=== PATIENT | male | born 1945 | race Caucasian/White ===

== ENCOUNTER 2018-02-01 02:44 | Inpatient (IN) | payer OTHER, MEDICARE ==
[2018-02-01] VITALS (7 sets, daily range): BP systolic 121–187; BP diastolic 73–103; PULSE 49–92; RESP 18–20; TEMP 97.4–98.8; O2SAT 92–98
[~2018-02-01] VITALS: Ht 175.3 cm; Wt 58.1 kg
[2018-02-01] MEDS ORDERED: SODIUM CHLORID 0.9% 500 ML INJ 500 ML IV ONE (03:30)
[2018-02-01] MEDS ORDERED: PROCHLORPERAZINE INJ 10 MG/2 ML VIAL IV PUSH ONE (03:30)
[2018-02-01] MEDS ORDERED: MORPHINE SULFATE 8 MG/ML INJ IV PUSH ONE (03:30)
--- NOTE | 2018-02-01 03:32 | PD ---
HPI Chief Complaint: Abdominal Pain Time Seen by Provider: 02:48 Travel History International Travel<30 days: No Contact w/Intl Traveler<30days: No Traveled to known affect area: No History of Present Illness HPI The patient is a 73 year old male who presents to the [facility] emergency department with a history of abdominal pain that he describes as stomach upset that began at 6:30 PM when he was eating dinner. He reports that he went to lie down to rest and with walking and movement he began to have left groin pain over his hernia. The patient reports that he has a large left hernia that is been present for the last 4-5 years. He reports that over the last 2 months he has been wearing a hernia belt with some improvement in his discomfort. He reports that it is usually reducible. He reports that since it began to hurt this evening he has been trying to reduce it for the last 3 hours without success. He reports that he now has generalized abdominal pain. He reports that he has had nausea and vomiting 3. He reports that he last moved his bowels at 6 PM. The patient denies having a local primary care physician. He has made an appointment with a new primary care physician, for next month. He was last seen by a primary care physician in [place] 3 years ago. The patient reports that he smokes 1 pack of cigarettes per day. Otherwise on review of systems, he denies having any worsening cough or congestion, neck pain, chest pain, shortness of breath, urinary symptoms, or neurologic symptoms. PFSH Past Medical History Narrative Medical The patient's past medical history is significant for dysthymia, left inguinal hernia Depression: Yes Diminished Hearing: No Influenza Vaccination: No Past Surgical History Narrative Surgical The patient's past surgical history is significant for tonsillectomy at 5 years of age. Tonsillectomy: Yes Social History Alcohol Use: No Tobacco Use: Yes (1 PCK/DAY) Substance Use: No Allergies-Medications (Allergen,Severity, Reaction): Coded Allergies: nystatin (Verified Allergy, Severe, FAINTING, DIZZINESS, 02/01/18) Reported Meds & Prescriptions Reported Meds & Active Scripts Active No Active Prescriptions or Reported Medications Review of Systems Except as stated in HPI: all other systems reviewed are Neg General / Constitutional: No: Fever Eyes: No: Visual changes HENT: No: Headaches, Rhinorrhea, Congestion Cardiovascular: No: Chest Pain or Discomfort Respiratory: No: Shortness of Breath Gastrointestinal: Positive: Nausea, Vomiting, Abdominal Pain, No: Diarrhea, Hematemesis, Hematochezia, Constipation, Changes in Bowel Habits, Indigestion, Loss of Appetite Genitourinary: No: Dysuria Musculoskeletal: No: Pain Skin: No Rash Neurologic: No: Weakness, Focal Abnormalities, Change in Mentation, Slurred Speech, Sensory Disturbance Psychiatric: No: Depression Endocrine: No: Polydipsia Hematologic/Lymphatic: No: Easy Bruising Physical Exam Narrative General: The patient is a well-developed well-nourished male, uncomfortable appearing on arrival, however otherwise in no acute distress. Head and Neck exam: Head is normocephalic atraumatic. Eyes: EOMI, pupils are equal round and reactive to light. Nose: Midline septum with pink mucous membranes Mouth: Dentition unremarkable. Moist mucus membranes. Posterior oropharynx is not erythematous. No tonsillar hypertrophy. Uvula midline. Airway patent. Neck: No palpable lymphadenopathy. No nuchal rigidity. No thyromegaly. Cardiovascular: Sinus bradycardia in the 50s m without murmurs, gallops, or rubs. No pulse deficit to the extremities on simultaneous auscultation and palpation of his radial artery. Lungs: Clear to auscultation bilaterally. No wheezes, rhonchi, or rales. Abdomen: Soft, with reported tenderness on palpation of the midepigastric area, bilateral lower quadrants of the abdomen worse in the left lower quadrant compared to the right. No tenderness specifically on palpation over McBurney's point. Negative De La Rosa sign. No guarding, rebound, or rigidity. Extremities: No clubbing, cyanosis, or edema. 2+ pulses in all 4 extremities. No calf tenderness on palpation. Back: No costovertebral angle tenderness to palpation. Neurologic Exam: Grossly nonfocal. Skin Exam: No rash noted. Intact skin that is warm and dry. Genital exam: The patient is a circumcised male. No genital lesions or rash noted. No penile drainage. The patient on examination has a large area of swelling most prominent on the left side of the groin and scrotum. The patient is exquisitely tender on palpation along the left groin and down into the scrotum. This palpates to be an incarcerated hernia that is not able to be reduced on exam. The patient additionally on the right side of the scrotum is noted to have hyperemia. He reports that this is a usual appearance of the right side of his scrotum. There is no crepitus. Data Data Last Documented VS Vital Signs Date Time Temp Pulse Resp B/P (MAP) Pulse Ox O2 Delivery O2 Flow Rate FiO2 02/01/18 05:16 92 20 151/85 (107) 95 Room Air 02/01/18 02:49 97.4 Orders Orders Complete Blood Count With Diff (02/01/18 03:04) Comprehensive Metabolic Panel (02/01/18 03:04) Creatine Kinase (Cpk) (02/01/18 03:04) Ckmb (Isoenzyme) Profile (02/01/18 03:04) Troponin I (02/01/18 03:04) C-Reactive Protein (Crp) (02/01/18 03:04) Lipase (02/01/18 03:04) Urinalysis - C+S If Indicated (02/01/18 03:04) Magnesium (Mg) (02/01/18 03:04) Chest, Single Ap (02/01/18 03:04) Iv Access Insert/Monitor (02/01/18 03:04) Ecg Monitoring (02/01/18 03:04) Oximetry (02/01/18 03:04) Morphine Inj (Morphine Inj) (02/01/18 03:30) Prochlorperazine Inj (Compazine Inj) (02/01/18 03:30) Sodium Chlorid 0.9% 500 Ml Inj (Ns 500 M (02/01/18 03:30) Ct Abd/Pel W Iv Contrast(Rout) (02/01/18 03:28) Us Testicles W Doppler (02/01/18 04:46) Iohexol 350 Inj (Omnipaque 350 Inj) (02/01/18 05:01) Admit Order (Ed Use Only) (02/01/18 06:03) Lactic Acid (02/01/18 06:03) Consult General Surgery (02/01/18 ) Labs Laboratory Tests Test 02/01/18 03:10 02/01/18 03:25 White Blood Count 9.1 TH/MM3 Red Blood Count 4.76 MIL/MM3 Hemoglobin 14.8 GM/DL Hematocrit 44.4 % Mean Corpuscular Volume 93.3 FL Mean Corpuscular Hemoglobin 31.2 PG Mean Corpuscular Hemoglobin Concent 33.4 % Red Cell Distribution Width 14.7 % Platelet Count 218 TH/MM3 Mean Platelet Volume 9.5 FL Neutrophils (%) (Auto) 82.8 % Lymphocytes (%) (Auto) 12.6 % Monocytes (%) (Auto) 3.0 % Eosinophils (%) (Auto) 0.8 % Basophils (%) (Auto) 0.8 % Neutrophils # (Auto) 7.6 TH/MM3 Lymphocytes # (Auto) 1.1 TH/MM3 Monocytes # (Auto) 0.3 TH/MM3 Eosinophils # (Auto) 0.1 TH/MM3 Basophils # (Auto) 0.1 TH/MM3 CBC Comment DIFF FINAL Differential Comment Blood Urea Nitrogen 18 MG/DL Creatinine 1.00 MG/DL Random Glucose 166 MG/DL Total Protein 7.4 GM/DL Albumin 4.1 GM/DL Calcium Level 8.9 MG/DL Magnesium Level 2.1 MG/DL Alkaline Phosphatase 75 U/L Aspartate Amino Transf (AST/SGOT) 18 U/L Alanine Aminotransferase (ALT/SGPT) 16 U/L Total Bilirubin 0.5 MG/DL Sodium Level 141 MEQ/L Potassium Level 4.4 MEQ/L Chloride Level 108 MEQ/L Carbon Dioxide Level 22.2 MEQ/L Anion Gap 11 MEQ/L Estimat Glomerular Filtration Rate 73 ML/MIN Total Creatine Kinase 88 U/L Troponin I LESS THAN 0.02 NG/ML C-Reactive Protein LESS THAN 0.29 MG/DL Lipase 44 U/L Urine Color YELLOW Urine Turbidity HAZY Urine pH 5.0 Urine Specific [place] 1.024 Urine Protein NEG mg/dL Urine Glucose (UA) 50 mg/dL Urine Ketones 20 mg/dL Urine Occult Blood MOD Urine Nitrite NEG Urine Bilirubin NEG Urine Urobilinogen 2.0 mg/dL Urine Leukocyte Esterase NEG Urine RBC 23 /hpf Urine WBC 1 /hpf Urine Squamous Epithelial Cells <1 /hpf Urine Mucus FEW /lpf Microscopic Urinalysis Comment CULT NOT INDICATED MDM Medical Decision Making Medical Screen Exam Complete: Yes Emergency Medical Condition: Yes Medical Record Reviewed: Yes Differential Diagnosis Hernia incarceration, versus gangrenous related hernia, versus testicular torsion Narrative Course During the course of the patient's emergency department visit, the patient's history, examination, and differential diagnosis were reviewed with the patient. The patient was placed on a setter off with oximetry and frequent blood pressure monitoring. The patient had IV access obtained and blood work sent for analysis. The patient was instructed regarding the plan of care. The patient has what palpates to be an incarcerated hernia. This is not able to be reduced on initial evaluation. This is large, firm, exquisitely tender to palpation on the left side. The patient reports that in the past he has been able to reduce this with pain medication. The patient will be given morphine 5 mg IV 1, Compazine 5 mg IV, ice pack applied to the groin, and again we will attempt to reduce the patient's hernia. Prior to the patient being given narcotics the patient will be consented for procedural sedation if the first attempt is not successful. The patient was initially provided normal saline 500 mL bolus 1. The patient was reexamined after morphine administration and the incarcerated hernia on the left was reducible. The patient continues to have swelling along the right scrotum and right groin. The patient denies ever being diagnosed with a hernia on that side. The patient's pain is completely resolved in his abdomen and in the groin. Imaging will be done to further evaluate. The patient's laboratory studies were reviewed and remarkable for 02/01/18 03:10 Total Protein 7.4, Albumin 4.1, Calcium Level 8.9, Magnesium Level 2.1, Alkaline Phosphatase 75, Aspartate Amino Transf (AST/SGOT) 18, Alanine Aminotransferase (ALT/SGPT) 16, Total Bilirubin 0.5, lactic acid is within normal limits. Radiology studies were reviewed and remarkable for Last Impressions Scrotum Ultrasound 02/01/18 0446 Signed Impressions: CONCLUSION: 1. Large left-sided inguinal hernia containing primarily small bowel. Large le ft hydrocele. Moderate-sized left varicocele. Abdomen/Pelvis CT 02/01/18 0328 Signed Impressions: CONCLUSION: 1. Large left-sided inguinal hernia containing mostly loops of small bowel wit hout any evidence of wall thickening or free air. There is extensive free fluid throughout the pelvis, around the liver and the spleen and within a left-sided hydrocele. Left-sided inguinal hernia measures at least 4.5 cm across and is a t least 14.0 cm in height. Chest X-Ray 02/01/18 0304 Signed Impressions: CONCLUSION: Negative examination. I spoke with Dr. Farmer at a proximally 6 AM. He did agree to see the patient in consultation. The patient's results were discussed with the patient, including the plan of care. I explained that further testing and/ or monitoring is indicated based on the patient's history, examination, and/ or laboratory findings. Therefore, I recommended admission for additional evaluation. The patient expressed understanding and was agreeable with this plan. The patient was admitted to the hospital in stable condition and sent to a bed under the care of the [facility] group. Physician Communication Physician Communication The patient's case including history, pertinent physical examination findings, and laboratory studies were discussed with Dr. Farmer, Dr. Aranda. [facility] Primary Impression: Abdominal pain Qualified Codes: R10.84 - Generalized abdominal pain Additional Impression: Left inguinal hernia Admitting Information Admitting Physician Requests: Admit Scripts No Active Prescriptions or Reported Meds Belem Sawyer MD Feb 01, 2018 03:32
--- NOTE | 2018-02-01 03:39 | RADRPT ---
EXAM DATE: 02/01/2018 3:35 AM EDT AGE/SEX: 73 years / Male INDICATIONS: Chest pain. CLINICAL DATA: This is the patient's initial encounter. Patient reports that signs and symptoms have been present for 1 day and indicates a pain score of 6/10. MEDICAL/SURGICAL HISTORY: None. None. COMPARISON: No prior exams available for comparison. FINDINGS: A single AP view of the chest demonstrates the lungs to be symmetrically aerated without evidence of mass, infiltrate or effusion. The cardiomediastinal contours are unremarkable. Osseous structures a re intact. CONCLUSION: Negative examination. Electronically signed by: Ralph Monterroso MD 02/01/2018 3:38 AM EDT
[2018-02-01 04:04] LABS: BILIRUBIN, URINE NEG (NEG); BLOOD, URINE MOD (NEG); GLUCOSE,URINE 50 mg/dL (NEG); KETONE, URINE 20 mg/dL (NEG); MUCUS URINE FEW /lpf (OCC); NITRITE,URINE NEG (NEG); SQUAMOUS EPITHELIAL CELL URINE <1 /hpf (0-5); URINE COLOR YELLOW (YELLW/STRAW); URINE LEUKOCYTE ESTERASE NEG (NEG)
[2018-02-01 04:18] LABS: AUTOMATED NEUTROPHIL # 7.6 TH/MM3 (1.8-7.7); BASOPHIL # 0.1 TH/MM3 (0-0.2); BASOPHIL % 0.8 % (0.0-2.0); EOSINOPHIL # 0.1 TH/MM3 (0-0.4); EOSINOPHIL % 0.8 % (0.0-4.0); HEMATOCRIT 44.4 % (39.0-51.0); HEMOGLOBIN 14.8 GM/DL (13.0-17.0); LYMPH % 12.6 % (9.0-44.0); LYMPHOCYTE # 1.1 TH/MM3 (1.0-4.8); MEAN CELL VOLUME 93.3 FL (80.0-100.0); MEAN CORPUSCULAR HEMOGLOBIN 31.2 PG (27.0-34.0); MEAN CORPUSCULAR HGB CONC 33.4 % (32.0-36.0); MEAN PLATELET VOLUME 9.5 FL (7.0-11.0); MONOCYTE # 0.3 TH/MM3 (0-0.9); NEUT % 82.8 % (16.0-70.0); PLATELET COUNT 218 TH/MM3 (150-450); RED BLOOD COUNT 4.76 MIL/MM3 (4.50-5.90); RED CELL DISTRIBUTION WIDTH 14.7 % (11.6-17.2); WHITE BLOOD COUNT 9.1 TH/MM3 (4.0-11.0)
[2018-02-01 04:32] LABS: ALBUMIN 4.1 GM/DL (3.4-5.0); ALKALINE PHOSPHATASE 75 U/L (45-117); ALT (GPT) 16 U/L (12-78); AST (GOT) 18 U/L (15-37); BICARBONATE 22.2 MEQ/L (21.0-32.0); BLOOD UREA NITROGEN 18 MG/DL (7-18); C-REACTIVE PROTEIN LESS THAN 0.29 MG/DL (0.00-0.30); CALCIUM 8.9 MG/DL (8.5-10.1); CHLORIDE 108 MEQ/L (98-107); GLOMERULAR FILTRATION RATE 73 ML/MIN (>89); GLUCOSE,RANDOM 166 MG/DL (74-106); MAGNESIUM 2.1 MG/DL (1.5-2.5); SODIUM (NA) 141 MEQ/L (136-145); TOTAL BILIRUBIN ADULT 0.5 MG/DL (0.2-1.0); TOTAL PROTEIN 7.4 GM/DL (6.4-8.2); TROPONIN I LESS THAN 0.02 NG/ML (0.02-0.05)
[2018-02-01] MEDS ORDERED: IOHEXOL 350 MG/ML 10 ML VIAL (for RAD DIAG) IVCONTRAST ONE (05:01)
--- NOTE | 2018-02-01 05:25 | RADRPT ---
EXAM DATE: 02/01/2018 5:11 AM EDT AGE/SEX: 73 years / Male INDICATIONS: Umbilical abdominal pain. CLINICAL DATA: This is the patient's initial encounter. Patient reports that signs and symptoms have been present for 1 day and indicates a pain score of 7/10. MEDICAL/SURGICAL HISTORY: None. None. ORAL CONTRAST: No oral contrast ingested. RADIATION DOSE: 6.64 CTDI (mGy) ; Patient body habitus COMPARISON: No prior exams available for comparison. TECHNIQUE: Multiple contiguous axial images were obtained through the abdomen and pelvis following b olus infusion of 95 ml Omnipaque 350 (iohexol) nonionic water-soluble contrast as a single exam dos e. No oral contrast ingested. Using automated exposure control and adjustment of the mA and/or kV ac cording to patient size, radiation dose was kept as low as reasonably achievable to obtain optimal di agnostic quality images. DICOM format image data is available electronically for review and comparis on. FINDINGS: Lower Lungs: The visualized lower lungs are clear. Liver: The liver has a homogeneous density without space-occupying lesion except small cyst left lobe of liver near the dome. There is no dilation of the biliary tree. Some fluid around the liver Spleen: Homogeneous density without enlargement. Some fluid around the spleen Pancreas: Unremarkable without mass or calcification. Kidneys: Normal in size and shape. No evidence of mass or hydronephrosis. Adrenal Glands: Unremarkable. Aorta: The aorta and proximal iliac vessels are grossly unremarkable without aneurysmal dilation. Bowel/Mesentery: The bowel loops are grossly unremarkable. The cecum and sigmoid colon have a normal configuration. Abdominal Wall: Intact. Retroperitoneum: No evidence of adenopathy in the retrocrural, para-aortic, or deep pelvic regions. Bladder: Contours are smooth. Free fluid pelvis Reproductive Organs: No abnormal masses or calcifications seen. Inguinal: The patient is a large left-sided inguinal hernia and large hydrocele. The hydrocele measu res 9.0 x 5.2 cm in the dependent portion of the left side of the scrotum. above that the hernia has a number of loops of small bowel without any definite transition point or wall thickening. There is no free air within the hernia Bony Structures: Unremarkable. CONCLUSION: 1. Large left-sided inguinal hernia containing mostly loops of small bowel without any evidence of w all thickening or free air. There is extensive free fluid throughout the pelvis, around the liver and the spleen and within a left-sided hydrocele. Left-sided inguinal hernia measures at least 4.5 cm ac ross and is at least 14.0 cm in height. Electronically signed by: Ralph Monterroso MD 02/01/2018 5:24 AM EDT
[2018-02-01] MEDS ORDERED: SODIUM CHLOR 0.9% 1000 ML INJ 1,000 ML IV SCH (06:26)
[2018-02-01] MEDS ORDERED: ACETAMINOPHEN 325 MG TAB PO PRN (06:30)
[2018-02-01] MEDS ORDERED: BISACODYL 10 MG SUPP RECTAL PRN (06:30)
[2018-02-01] MEDS ORDERED: LACTULOSE SYRUP 20 GM/30 ML CUP PO PRN (06:30)
[2018-02-01] MEDS ORDERED: SODIUM CHLORIDE 0.9% FLUSH 10 ML FLUSH IV FLUSH PRN (06:30)
[2018-02-01] MEDS ORDERED: NALOXONE HCL 0.4 MG/ML AMP IV PUSH PRN (06:30)
[2018-02-01] MEDS ORDERED: MAGNESIUM HYDROXIDE SUSP 30 ML CUP PO PRN (06:30)
[2018-02-01] MEDS ORDERED: MORPHINE SULFATE 4 MG/ML INJ IV PUSH PRN (06:30)
[2018-02-01] MEDS ORDERED: SENNOSIDES 8.6 MG TAB PO PRN (06:30)
--- NOTE | 2018-02-01 06:37 | RADRPT ---
EXAM DATE: 02/01/2018 5:42 AM EDT AGE/SEX: 73 years / Male INDICATIONS: Left inguinal hernia. Evaluate for torsion. CLINICAL DATA: This is the patient's initial encounter. Patient reports that signs and symptoms have been present for 1 day and indicates a pain score of 4/10. MEDICAL/SURGICAL HISTORY: . Left inguinal hernia. Tonsillectomy. COMPARISON: No prior exams available for comparison. MEASUREMENTS: Right Testicle:__4.2 x 2.8 x 1.8 cm Left Testicle:__4.1 x 2.2 x 1.3 cm cm FINDINGS: There is a large left inguinal hernia with numerous loops of bowel. RIGHT: Testicle: Homogeneous echotexture without intra or extratesticular mass. Blood flow is symmetric and within normal limits. Epididymis: Within normal limits. Hydrocele: No hydrocele. Varicocele: No evidence of varicocele. LEFT: Testicle: Homogeneous echotexture without intra or extratesticular mass. Blood flow is symmetric and within normal limits. Epididymis: Within normal limits. Hydrocele: Moderate-large hydrocele present. Varicocele: Varicocele with increased flow on valsalva. Scrotum: Moderately distended with the inguinal hernia CONCLUSION: 1. Large left-sided inguinal hernia containing primarily small bowel. Large left hydrocele. Moderate -sized left varicocele. Electronically signed by: Ralph Monterroso MD 02/01/2018 6:36 AM EDT
[2018-02-01] MEDS ORDERED: ONDANSETRON ODT 4 MG TAB PO PRN (06:45)
--- NOTE | 2018-02-01 08:20 | HHI.HP ---
[facility] Service [facility] Primary Care Physician No Primary Care Physician Admission Diagnosis Abdominal pain, large left inguinal hernia Diagnoses: (1) Abdominal pain Diagnosis: Principal (2) Left inguinal hernia Diagnosis: Principal Chief Complaint: abdominal pain Travel History International Travel<30 Days: No Contact w/Intl Traveler <30 Da: No Traveled to Known Affected Are: No History of Present Illness patient is a 73 y/o male with no significant past medical history - other than inguinal hernia- who presented to ER with abdominal pain. he says that he's had inguinal hernia for the past few years. he says that he's been having on and off mild abdominal pain but usually the pain goes away on its own. last night after he had his supper he started to have some epigastric pain along with some pain to the left inguinal area. then he started to have nausea and vomited last night. after his pain didn't subside he decided to come to ER. Review of Systems Constitutional: DENIES: Fever, Weight loss, Chills, Night Sweats Eyes: DENIES: Blurred vision, Diplopia, Vision loss, Double Vision Ears, nose, mouth, throat: DENIES: Tinnitus, Vertigo, Throat pain, Epistaxis Respiratory: DENIES: Apneas, Cough, Snoring, Wheezing, Hemoptysis, Sputum production, Shortness of breath Cardiovascular: DENIES: Chest pain, Palpitations, Syncope, Dyspnea on Exertion , PND, Lower Extremity Edema, Orthopnea, Claudication Gastrointestinal: COMPLAINS OF: Abdominal pain, Nausea, Vomiting, DENIES: Black stools, Bloody stools, Constipation, Diarrhea, Difficulty Swallowing, Anorexia Genitourinary: DENIES: Urinary frequency, Urgency, Hematuria, Dysuria Musculoskeletal: DENIES: Joint pain, Muscle aches, Stiffness, Joint Swelling Integumentary: DENIES: Rash Neurologic: DENIES: Abnormal gait, Headache, Localized weakness, Paresthesias, Seizures, Speech Problems, Tremor, Poor Balance Psychiatric: DENIES: Anxiety, Confusion, Mood changes, Depression, Hallucinations, Agitation, Suicidal Ideation, Homicidal Ideation, Delusions Past Family Social History Past Medical History not significant. Past Surgical History tonsillectomy. Reported Medications none. Allergies: Coded Allergies: nystatin (Verified Allergy, Severe, FAINTING, DIZZINESS, 02/01/18) Active Ordered Medications Inpatient Medications Acetaminophen (Tylenol) 650 mg Q4H PRN PO TEMP > 100.4; Start 02/01/18 at 06:30 Bisacodyl (Dulcolax Supp) 10 mg DAILY PRN RECTAL SEVERE CONSITIPATION; Start at 06:30 Lactulose (Lactulose Liq) 30 ml DAILY PRN PO SEVERE CONSITIPATION; Start at 06:30 Magnesium Hydroxide (Milk Of Magnesia Liq) 30 ml Q12H PRN PO Mild constipation ; Start 02/01/18 at 06:30 Morphine Sulfate (Morphine Inj) 4 mg Q3H PRN IV PUSH pain 6-10; Start 02/01/18 at 06:30 Naloxone HCl (Narcan Inj) 0.4 mg UNSCH PRN IV PUSH SEE LABEL COMMENTS; Start at 06:30 Ondansetron HCl (Zofran Odt) 4 mg Q6H PRN PO NAUSEA OR VOMITING; Start at 06:45 Prochlorperazine Edisylate (Compazine Inj) 5 mg ONCE ONCE IV PUSH Last administered on 02/01/18at 03:34; Start 02/01/18 at 03:30; Stop 02/01/18 at 03:31 ; Status DC Senna/Docusate Sodium ([place]-Colace) 1 tab BID PO ; Start 02/01/18 at 09:00 Sennosides (Senokot) 17.2 mg Q12H PRN PO Moderate constipation; Start 02/01/18 at 06:30 Sodium Chloride (NS Flush) 2 ml BID IV FLUSH ; Start 02/01/18 at 09:00 Family History lung cancer in mother. Social History smokes a pack a day- used to drink in the past. Physical Exam Vital Signs Vital Signs Date Time Temp Pulse Resp B/P (MAP) Pulse Ox O2 Delivery O2 Flow Rate FiO2 02/01/18 05:16 92 20 151/85 (107) 95 Room Air 02/01/18 03:05 20 98 Room Air 02/01/18 02:49 97.4 49 20 187/103 (131) 98 Physical Exam GENERAL: This is a well-nourished, well-developed patient, in no apparent distress. SKIN: No rashes, ecchymoses or lesions. Cool and dry. HEAD: Atraumatic. Normocephalic. No temporal or scalp tenderness. EYES: Pupils equal round and reactive. Extraocular motions intact. No scleral icterus. No injection or drainage. ENT: Nose without bleeding, purulent drainage or septal hematoma. Throat without erythema, tonsillar hypertrophy or exudate. Uvula midline. Airway patent. NECK: Trachea midline. No JVD or lymphadenopathy. Supple, nontender, no meningeal signs. CARDIOVASCULAR: Regular rate and rhythm without murmurs, gallops, or rubs. RESPIRATORY: Clear to auscultation. Breath sounds equal bilaterally. No wheezes , rales, or rhonchi. GASTROINTESTINAL: Abdomen soft, non-tender, nondistended. No hepato-splenomegaly , or palpable masses. No guarding. inguinal hernia noted. MUSCULOSKELETAL: Extremities without clubbing, cyanosis, or edema. No joint tenderness, effusion, or edema noted. No calf tenderness. Negative Homans sign bilaterally. NEUROLOGICAL: Awake and alert. Cranial nerves II through XII intact. Motor and sensory grossly within normal limits. Five out of 5 muscle strength in all muscle groups. Normal speech. Laboratory Laboratory Tests Test 02/01/18 03:10 02/01/18 03:25 02/01/18 06:15 White Blood Count 9.1 Red Blood Count 4.76 Hemoglobin 14.8 Hematocrit 44.4 Mean Corpuscular Volume 93.3 Mean Corpuscular Hemoglobin 31.2 Mean Corpuscular Hemoglobin Concent 33.4 Red Cell Distribution Width 14.7 Platelet Count 218 Mean Platelet Volume 9.5 Neutrophils (%) (Auto) 82.8 Lymphocytes (%) (Auto) 12.6 Monocytes (%) (Auto) 3.0 Eosinophils (%) (Auto) 0.8 Basophils (%) (Auto) 0.8 Neutrophils # (Auto) 7.6 Lymphocytes # (Auto) 1.1 Monocytes # (Auto) 0.3 Eosinophils # (Auto) 0.1 Basophils # (Auto) 0.1 CBC Comment DIFF FINAL Differential Comment Blood Urea Nitrogen 18 Creatinine 1.00 Random Glucose 166 Total Protein 7.4 Albumin 4.1 Calcium Level 8.9 Magnesium Level 2.1 Alkaline Phosphatase 75 Aspartate Amino Transf (AST/SGOT) 18 Alanine Aminotransferase (ALT/SGPT) 16 Total Bilirubin 0.5 Sodium Level 141 Potassium Level 4.4 Chloride Level 108 Carbon Dioxide Level 22.2 Anion Gap 11 Estimat Glomerular Filtration Rate 73 Total Creatine Kinase 88 Troponin I LESS THAN 0.02 C-Reactive Protein LESS THAN 0.29 Lipase 44 Urine Color YELLOW Urine Turbidity HAZY Urine pH 5.0 Urine Specific [place] 1.024 Urine Protein NEG Urine Glucose (UA) 50 Urine Ketones 20 Urine Occult Blood MOD Urine Nitrite NEG Urine Bilirubin NEG Urine Urobilinogen 2.0 Urine Leukocyte Esterase NEG Urine RBC 23 Urine WBC 1 Urine Squamous Epithelial Cells <1 Urine Mucus FEW Microscopic Urinalysis Comment CULT NOT INDICATED Lactic Acid Level 1.1 Result Diagram: 02/01/18 0310 02/01/18 031 Imaging Last Impressions Scrotum Ultrasound 02/01/18 0446 Signed Impressions: CONCLUSION: 1. Large left-sided inguinal hernia containing primarily small bowel. Large le ft hydrocele. Moderate-sized left varicocele. Abdomen/Pelvis CT 02/01/18 0328 Signed Impressions: CONCLUSION: 1. Large left-sided inguinal hernia containing mostly loops of small bowel wit hout any evidence of wall thickening or free air. There is extensive free fluid throughout the pelvis, around the liver and the spleen and within a left-sided hydrocele. Left-sided inguinal hernia measures at least 4.5 cm across and is a t least 14.0 cm in height. Chest X-Ray 02/01/18 0304 Signed Impressions: CONCLUSION: Negative examination. Caprini VTE Risk Assessment Caprini VTE Risk Assessment: Mod/High Risk (score >= 2) Caprini Risk Assessment Model Point Value = 1 Point Value = 2 Point Value = 3 Point Value = 5 Age 41-60 Minor surgery BMI > 25 kg/m2 Swollen legs Varicose veins or History of unexplained or recurrent spontaneous Oral contraceptives or hormone replacement Sepsis (< 1 month) Serious lung disease, including pneumonia (< 1 month) Abnormal pulmonary function Acute myocardial infarction Congestive heart failure (< 1 month) History of inflammatory bowel disease Medical patient at bed rest Age 61-74 Arthroscopic surgery Major open surgery (> 45 min) Laparoscopic surgery (> 45 min) Malignancy Confined to bed (> 72 hours) Immobilizing plaster cast Central venous access Age >= 75 History of VTE Family history of VTE Factor V Leiden Prothrombin [id number] Lupus anticoagulant Anticardiolipin antibodies Elevated serum homocysteine Heparin-induced thrombocytopenia Other congenital or acquired thrombophilia Stroke (< 1 month) Elective arthroplasty Hip, pelvis, or leg fracture Acute spinal cord injury (< 1 month) Prophylaxis Regimen Total Risk Factor Score Risk Level Prophylaxis Regimen 0-1 Low Early ambulation 2 Moderate Order ONE of the following: *Sequential Compression Device (SCD) *Heparin 5000 units SQ BID 3-4 Higher Order ONE of the following medications: *Heparin 5000 units SQ TID *Enoxaparin/Lovenox 40 mg SQ daily (WT < 150 kg, CrCl > 30 mL/min) *Enoxaparin/Lovenox 30 mg SQ daily (WT < 150 kg, CrCl > 10-29 mL/min) *Enoxaparin/Lovenox 30 mg SQ BID (WT < 150 kg, CrCl > 30 mL/min) AND/OR *Sequential Compression Device (SCD) 5 or more Highest Order ONE of the following medications: *Heparin 5000 units SQ TID (Preferred with Epidurals) *Enoxaparin/Lovenox 40 mg SQ daily (WT < 150 kg, CrCl > 30 mL/min) *Enoxaparin/Lovenox 30 mg SQ daily (WT < 150 kg, CrCl > 10-29 mL/min) *Enoxaparin/Lovenox 30 mg SQ BID (WT < 150 kg, CrCl > 30 mL/min) AND *Sequential Compression Device (SCD) Assessment and Plan Assessment and Plan A/P - left inguinal hernia NPO for now- continue with supportive care with IV fluid and pain control- surgery consulted. -DVT prophylaxis- pending surgery evaluation. Discussed Condition With the patient. Physician Certification 2 Midnight Certification Type: Admission for Inpatient Services Order for Inpatient Services The services are ordered in accordance with Medicare regulations or non- Medicare payer requirements, as applicable. In the case of services not specified as inpatient-only, they are appropriately provided as inpatient services in accordance with the 2-midnight benchmark. Estimated LOS (days): 2 days is the estimated time the patient will need to remain in the hospital, assuming treatment plan goals are met and no additional complications. Post-Hospital Plan: Home Problem Qualifiers (1) Abdominal pain: Qualified Codes: R10.84 - Generalized abdominal pain Matthieu Parks MD Feb 01, 2018 08:20
[2018-02-01] MEDS ORDERED: DOCUSATE SODIUM 50 MG/SENNA 8.6 MG TAB PO SCH (09:00)
[2018-02-01] MEDS ORDERED: SODIUM CHLORIDE 0.9% FLUSH 10 ML FLUSH IV FLUSH SCH (09:00)
--- NOTE | 2018-02-01 18:29 | MB ---
cc: Maxwell Farmer MD, Lars S MD DATE: 02/01/2018 REASON FOR CONSULTATION: Left inguinal hernia. HISTORY OF PRESENT ILLNESS: The patient is a 73-year-old male who presents with a chronic left inguinal hernia with acute onset of abdominal and hernia pain. The patient noted to have the hernia for many years and notes that he has it protrude and has to reduce it on his own. It happens occasionally every several months. He denies any previous history of incarceration of hernia; however, he does note he got a hernia belt about 3 months ago and notes no significant problems following the hernia belt until last night around 6 p.m. He noted significant pain around 6/10, sharp, left inguinal. The patient was unable to reduce his hernia at that time. Therefore, he came to the emergency department for further evaluation including CT scan and laboratory workup. The patient was noted to be able to have a partially reduced inguinal hernia on the left and his pain has significantly improved. Surgery was consulted for further evaluation. At my exam, the patient is noted to have a very large hernia defect on the left. He is mildly tender to this area. There is no erythema or signs of strangulation that I appreciate at this time; however, given the duration there is some concern for need for further evaluation and monitoring. PAST MEDICAL HISTORY: Left inguinal hernia, dysthymia. PAST SURGICAL HISTORY: Tonsillectomy. MEDICATIONS: None. ALLERGIES: NYSTATIN MEDICATIONS: See EMR. SOCIAL HISTORY: Positive smoking 1 pack a day. Occasional ETOH. Denies frequent use currently; however, significant use in the past. Denies IVDA. FAMILY HISTORY: Denies diabetes or hypertension. REVIEW OF SYSTEMS: GENERAL: Denies fever or chills. HEENT: Denies eye pain or ear pain. NECK: Denies swelling or pain. LUNGS: Denies cough or wheeze. HEART: Denies palpitations or chest pain. ABDOMEN: Complained of abdominal pain, nausea. Denies vomiting. GENITOURINARY: Denies dysuria, hematuria. ENDOCRINE: Denies polyuria or polydipsia. INTEGUMENT: Denies any masses or lesions. PHYSICAL EXAMINATION: GENERAL: Patient in no acute distress. VITAL SIGNS: Temperature 97.4, pulse 49, respirations 20, blood pressure 151/85, saturation 95%. HEENT: Pupils equal, round, reactive. NECK: Supple. Trachea midline. LUNGS: Clear to auscultation, bilateral expansion. HEART: S1, S2 regular. ABDOMEN: Soft. Mild tenderness to palpation left groin area. Large hernia defect, partially reduced. No erythema, no peritoneal signs. EXTREMITIES: Warm and well perfused. NEUROLOGIC: GCS 15, 5/5 motor all extremities. PSYCHIATRIC: Appropriate mood and appropriate judgment. LABORATORY AND DIAGNOSTIC DATA: WBC 9.1, hemoglobin 14.8, hematocrit 44.4, platelets 218. Sodium 141, potassium 4.4, chloride 108, BUN 18, creatinine 1, lactate 1.1, AST 18, ALT 19, lipase 44. Neck CT was reviewed by myself showing hernia with some ascites diffusely throughout the abdomen, no evidence of free air or bowel wall thickening. Ultrasound confirms hernia varicocele with loops of bowel. ASSESSMENT: The patient is a 73-year-old male, large left inguinal hernia chronic, acute on chronic incarceration; however, this has been reduced partially. The patient is in no distress at this time. PLAN: After full workup, patient with the above named issues. At this point, I recommend observation for 24 hours along with repeat laboratory values. The patient can have full liquid diet. The patient needs abdominal exams. The patient does have ascites on his scan; however, questionable whether this is acute or chronic, appears more likely chronic in nature, but again we will have the patient under close observation and reassess and reevaluate labs in the morning. Discussed with the patient in detail. He states understanding and agrees. The patient is currently not wanting to have surgery if he can avoid it. I discussed this may be reasonable. I did discuss if his clinical exam does deteriorate or change, he may warrant surgical intervention including possible bowel resection and hernia repair. He is understanding of this. MD ANU Rjoas/ , 05:35 PM , 06:28 PM
[2018-02-02] VITALS: BP 122/81; PULSE 80; RESP 18; TEMP 98.2; O2SAT 95
[2018-02-02 04:00] VITALS: BP 130/80; PULSE 78; RESP 18; TEMP 98.5; O2SAT 95
[2018-02-02 08:00] VITALS: BP 149/73; PULSE 80; RESP 18; TEMP 99.1; O2SAT 98
--- NOTE | 2018-02-02 09:30 | HHI.PR ---
Subjective Remarks Follow-up left inguinal hernia February 02, 2018-patient seen and examined, reported improvement of abdominal pain. He denies any left inguinal as well as hernia pain .he was cleared by general surgery for discharge home. Objective Vitals Vital Signs Date Time Temp Pulse Resp B/P (MAP) Pulse Ox O2 Delivery O2 Flow Rate FiO2 02/02/18 08:00 99.1 80 18 149/73 (98) 98 02/02/18 04:00 98.5 78 18 130/80 (97) 95 02/02/18 00:00 98.2 80 18 122/81 (95) 95 02/01/18 20:00 98.2 84 18 138/85 (102) 95 02/01/18 16:39 97.6 73 20 158/103 (121) 95 02/01/18 12:27 98.8 62 20 121/73 (89) 92 02/01/18 10:05 I/O 02/01/18 02/01/18 02/01/18 02/02/18 02/02/18 02/02/18 07:00 15:00 23:00 07:00 15:00 23:00 Intake Total 500 ml Balance 500 ml Intake IV Total 500 ml # Voids 4 Result Diagram: 02/01/18 0310 02/01/18 0310 Imaging Last Impressions Scrotum Ultrasound 02/01/18 0446 Signed Impressions: CONCLUSION: 1. Large left-sided inguinal hernia containing primarily small bowel. Large le ft hydrocele. Moderate-sized left varicocele. Abdomen/Pelvis CT 02/01/18 0328 Signed Impressions: CONCLUSION: 1. Large left-sided inguinal hernia containing mostly loops of small bowel wit hout any evidence of wall thickening or free air. There is extensive free fluid throughout the pelvis, around the liver and the spleen and within a left-sided hydrocele. Left-sided inguinal hernia measures at least 4.5 cm across and is a t least 14.0 cm in height. Chest X-Ray 02/01/18 0304 Signed Impressions: CONCLUSION: Negative examination. Objective Remarks GENERAL: NAD SKIN: Warm and dry. HEAD: Normocephalic. EYES: No scleral icterus. No injection or drainage. NECK: Supple, trachea midline. No JVD or lymphadenopathy. CARDIOVASCULAR: Regular rate and rhythm without murmurs, gallops, or rubs. RESPIRATORY: Breath sounds equal bilaterally. No accessory muscle use. GASTROINTESTINAL: Abdomen soft, non-tender, nondistended. MUSCULOSKELETAL: No cyanosis, or edema. : Left large inguinal hernia BACK: Nontender without obvious deformity. No CVA tenderness. A/P Problem List: (1) Left inguinal hernia ICD Code: K40.90 - Unilateral inguinal hernia, without obstruction or gangrene , not specified as recurrent Status: Acute (2) Abdominal pain ICD Code: R10.9 - Unspecified abdominal pain Status: Acute Assessment and Plan 73-year-old man with Left large inguinal hernia Seen and assessed by general surgery, however elected for conservative management Patient currently free of pain and has been clear for discharge home Abdominal pain Resolved Tobacco abuse Tobacco counseling cessation provided Discharge Planning Discharge patient to home Condition on discharge: Improved Regular Diet as tolerated Ad Aishwarya activity Rx written: None Follow-up with primary care physician in 1 week Neurosurgery as needed Problem Qualifiers (1) Abdominal pain: Qualified Codes: R10.84 - Generalized abdominal pain Ashutosh Russell MD Feb 02, 2018 09:30
[2018-02-02 09:45] LABS: AUTOMATED NEUTROPHIL # 2.3 TH/MM3 (1.8-7.7); BASOPHIL # 0.1 TH/MM3 (0-0.2); BASOPHIL % 1.9 % (0.0-2.0); EOSINOPHIL # 0.3 TH/MM3 (0-0.4); HEMATOCRIT 42.4 % (39.0-51.0); HEMOGLOBIN 13.9 GM/DL (13.0-17.0); LYMPH % 38.2 % (9.0-44.0); LYMPHOCYTE # 1.8 TH/MM3 (1.0-4.8); MEAN CELL VOLUME 91.8 FL (80.0-100.0); MEAN CORPUSCULAR HEMOGLOBIN 30.2 PG (27.0-34.0); MEAN CORPUSCULAR HGB CONC 32.9 % (32.0-36.0); MEAN PLATELET VOLUME 9.5 FL (7.0-11.0); MONO % 4.8 % (0.0-8.0); MONOCYTE # 0.2 TH/MM3 (0-0.9); NEUT % 49.1 % (16.0-70.0); PLATELET COUNT 217 TH/MM3 (150-450); RED BLOOD COUNT 4.61 MIL/MM3 (4.50-5.90); RED CELL DISTRIBUTION WIDTH 14.5 % (11.6-17.2); WHITE BLOOD COUNT 4.7 TH/MM3 (4.0-11.0)
[2018-02-02 10:19] LABS: BICARBONATE 24.4 MEQ/L (21.0-32.0); CALCIUM 8.9 MG/DL (8.5-10.1); CREATININE 0.96 MG/DL (0.60-1.30)
--- NOTE | 2018-02-02 11:04 | HHI.PR ---
cc: Maxwell Farmer MD Subjective Subjective Notes Up to chair eating No complaints Abdominal pain gone Objective Vitals/I&O Vital Signs Date Time Temp Pulse Resp B/P (MAP) Pulse Ox O2 Delivery O2 Flow Rate FiO2 02/02/18 08:00 99.1 80 18 149/73 (98) 98 02/01/18 07:20 Room Air Labs Laboratory Tests Test 02/02/18 08:36 White Blood Count 4.7 Red Blood Count 4.61 Hemoglobin 13.9 Hematocrit 42.4 Mean Corpuscular Volume 91.8 Mean Corpuscular Hemoglobin 30.2 Mean Corpuscular Hemoglobin Concent 32.9 Red Cell Distribution Width 14.5 Platelet Count 217 Mean Platelet Volume 9.5 Neutrophils (%) (Auto) 49.1 Lymphocytes (%) (Auto) 38.2 Monocytes (%) (Auto) 4.8 Eosinophils (%) (Auto) 6.0 Basophils (%) (Auto) 1.9 Neutrophils # (Auto) 2.3 Lymphocytes # (Auto) 1.8 Monocytes # (Auto) 0.2 Eosinophils # (Auto) 0.3 Basophils # (Auto) 0.1 CBC Comment DIFF FINAL Differential Comment Blood Urea Nitrogen 13 Creatinine 0.96 Random Glucose 92 Calcium Level 8.9 Sodium Level 139 Potassium Level 4.2 Chloride Level 106 Carbon Dioxide Level 24.4 Anion Gap 9 Estimat Glomerular Filtration Rate 77 Cardiovascular: Regular Lungs: Clear Abdomen: Non-distended, Non-tender Extremities: No edema A/P Assessment and Plan 73 year old male with reducible LEFT inguinal hernia -WBC normal -Exam improved -Follow up as outpatient for timing of elective surgery Madelin Resendiz/First Julius OLIVERA Feb 02, 2018 11:04
== END 2018-02-02 11:32 | disposition home or self-care (01) | DRG 395 ==
LOC: NEPE 02:44 → NEDA 06:06 → N05A 10:03
PROVIDERS: ADMIT Hospitalist; ATTEND Hospitalist
DX: K40.90 Unilateral inguinal hernia, without obstruction or gangrene, not specified as recurrent (principal); F17.200 Nicotine dependence, unspecified, uncomplicated
CPT/HCPCS: 71045; 74177; 76870; 80048; 80053; 81001; 82550; 83605; 83690; 83735; 84484; 85025; 86140; 93975; J0780; J2270; J7030; J7040; Q9967